=== PATIENT | female | born 1960 | race Caucasian/White ===

== ENCOUNTER → 2023-11-18 08:35 | Outpatient (REF) | payer BC, SELFPAY | LOC: WDC 08:35 | PROVIDERS: ATTENDING PHYSICIAN Nurse Practitioner Adult Health; FAMILY PHYSICIAN Family Medicine | DX: Z12.31 Encounter for screening mammogram for malignant neoplasm of breast (principal) | CPT/HCPCS: 77063; 77067 ==

== ENCOUNTER → 2024-11-18 11:09 | Outpatient (REF) | payer MEDICARE, OTHER, SELFPAY | LOC: WDC 11:09 | PROVIDERS: ATTENDING PHYSICIAN Nurse Practitioner Adult Health | DX: Z12.31 Encounter for screening mammogram for malignant neoplasm of breast (principal) | CPT/HCPCS: 77063; 77067 ==

== ENCOUNTER 2024-12-24 10:08 | Emergency (ER) | payer MEDICARE, OTHER, SELFPAY ==
[2024-12-24 10:13] VITALS: BP 157/94
[2024-12-24 10:43] VITALS: BP 141/72
[2024-12-24 11:00] VITALS: BP 130/84
[2024-12-24 11:14] VITALS: BP 130/84
[2024-12-24 11:26] VITALS: BP 147/89
[2024-12-24 11:37] LABS: Hematocrit 41.2 % (37.0-47.0); Hemoglobin 14.8 g/dL (12.0-16.0); Mean Corp Hgb Conc. 35.9 g/dL (33.0-37.0); Mean Corpuscular Volume 93.8 fL (81.0-99.0); Nucleated Red Blood Cells % 0 %; Platelet Count 217 10^3/uL (130-400); Red Cell Dist. Width 12.0 % (11.5-14.5)
[2024-12-24 12:02] LABS: ALT (SGPT) 22 U/L (0-35); AST (SGOT) 24 U/L (14-36); Albumin 4.3 g/dl (3.5-5.0); Alkaline Phosphatase 73 U/L (38-126); Blood Urea Nitrogen 17 mg/dl (7-17); Calcium 9.9 mg/dl (8.4-10.2); Carbon Dioxide 26 mmol/L (22-30); Chloride 109 mmol/L (98-107); Glucose 117 mg/dl (70-99); Potassium 4.0 mmol/L (3.5-5.1); Sodium 140 mmol/L (135-145); Total Protein 6.8 g/dl (6.3-8.2); eGFR > 60.00
[2024-12-24 12:38] LABS: Troponin I < 0.012 ng/ml
[2024-12-24 13:01] VITALS: BP 152/96
[2024-12-24 13:03] VITALS: BMI 29.1
--- NOTE | 2024-12-24 13:06 | ED.GENMED ---
History of Present Illness
General
Chief Complaint: Breathing Problem
Time Seen by Provider: 12/24/24 10:45
History of Present Illness
History of Present Illness:
64 yo female w/ hx of allergic rhinitis presents for Evaluation of acute onset of shortness of breath that began this morning. States that she abruptly felt her chest was tight she had a hard time breathing however symptoms have since resolved.
She did have chest pain during this time she states 'I always have chest pain' she indicates that this has been previously evaluated by cardiology and deemed to be noncardiac in nature. She currently feels well with no active symptoms. No fevers
or chills.
Review of Systems
Review of Systems
Allergies reviewed?: Yes
All Other Systems: ROS reviewed and negative except as documented in HPI and ROS
Phy Exam
Physical Exam
Physical Exam:
GEN: Well appearing, NAD, WDWN
HEENT: Oral mucosa moist, no scleral icterus
Cardiac: Regular rate and rhythm, no murmurs
Lung: No respiratory distress, no tachypnea, lungs clear to auscultation, no wheezes rales or rhonchi
MSK: No gross deformity or injuries
Skin: Good color, no pallor or jaundice, no rashes
Neuro: AO x3, moves all extremities freely
Psych: Calm, cooperative
Scores
Heart Failure Risk
Heart Failure Risk Score: Not Applicable
Course
Orders/Labs/Results
Orders:
Orders
12/24/24 10:10
EKG [Electrocardiogram (*1)] Urgent
Reason for Study: Shortness of Breath
12/24/24 10:11
EKG- Treatment ONCE
12/24/24 11:25
CR Chest - 2 Views Urgent
Comment:
Reason For Exam: chest pain/SOB
12/24/24 11:28
Complete Blood Count/With Diff Urgent
Comprehensive Metabolic Panel Urgent
Troponin I Urgent
Abnormal Lab Results
12/24/24
11:28
MCH 33.7 H pg
(27.0-31.0)
MPV 10.8 H fL
(7.4-10.4)
Absolute Lymphs (auto) 1.1 L 10^3/uL
(1.2-3.4)
Neutrophils % 75.5 H %
(42.2-75.2)
Lymphocytes % 15.7 L %
(20.5-51.1)
Chloride 109 H mmol/L
(98-107)
Glucose 117 H mg/dl
(70-99)
12/24/24 11:28
12/24/24 11:28
Vital Signs
Initial and Last Documented VS:
Initial Vital Signs
BP
157/94
12/24/24 10:13
Last Documented Vital Signs
Temp Pulse Resp BP Pulse Ox
98.0 F 72 22 152/96 97
12/24/24 11:14 12/24/24 13:30 12/24/24 13:30 12/24/24 13:01 12/24/24 13:30
MDM/Problems Addressed
MDM/Problems Addressed:
Patient remained asymptomatic in emergency department. Her EKG is nonischemic and labs are reassuring. The abrupt onset and resolution of her symptoms is suspicious for a bronchospastic cause potentially related to her underlying allergies.
Prescribed beta agonist inhaler and encouraged primary care follow-up if symptoms recur
*Pulse Oximetry
SaO2: 99
Oxygen Mode of Delivery: Room air
Patient hypoxic: no
*Critical Care Note
Total Time (30-74mins, 75-104mins- exclusive of procedures): Not Applicable
ED Attending Note
-
Portions of this chart may have been created with voice recognition software.� Occasional wrong word or��sound alike� substitutions may have occurred due to the inherent limitations of voice recognition software.
Discharge Plan
Departure
Patient Disposition: Home (Routine Discharge)
Date of Disposition: 12/24/24
Time of Disposition: 13:06
Patient with high blood pressure during this ER visit?: No
Discharge Problem:
Shortness of breath
Instructions: Shortness of Breath (Dyspnea) (DC)
Prescriptions:
New
albuterol sulfate [Ventolin HFA] 90 mcg/actuation HFA aerosol inhaler
2 puff inhalation Q6H PRN (Reason: shortness of breath or wheezing) Qty: 6.7 0RF
Referrals:
Carolin Su DO [Family Provider, Family Practice]
Interventions
Interventions:
*Risk Screen - Suicide Last Done: 12/24/24 13:07
*General Assessment Last Done: 12/24/24 13:30
*Neglect/Abuse Screening Last Done: 12/24/24 10:12
*ED- Fall Risk Assessment Last Done: 12/24/24 13:30
*ED COVID-19 Vaccine History Last Done: 12/24/24 13:07
*Nursing Disposition Last Done: 12/24/24 13:30
ED- Cardiac Assessment Last Done: 12/24/24 13:05
ED- Pulmonary Assessment Last Done: 12/24/24 13:05
Discharge Date and Time
Print Language: [id number]
== END 2024-12-24 13:30 | disposition home or self-care (01) ==
LOC: EMR 10:08
PROVIDERS: Physician Assistant; EMERGENCY PHYSICIAN Emergency Medicine; FAMILY PHYSICIAN Family Medicine
DX: R06.02 Shortness of breath (principal)
CPT/HCPCS: 99284; 71046; 80053; 84484; 85025; 93005

== ENCOUNTER → 2025-02-22 07:10 | Outpatient (REF) | payer MEDICARE, OTHER, SELFPAY | LOC: MRI 3T 07:10 | PROVIDERS: ATTENDING PHYSICIAN Psychiatry & Neurology Behavioral Neurology & Neuropsychiatry; FAMILY PHYSICIAN Family Medicine | DX: G30.9 Alzheimer's disease, unspecified (principal) | CPT/HCPCS: 70551 ==